=== PATIENT | male | born 1980 | race Caucasian/White ===

== ENCOUNTER → 2018-12-09 | Emergency (ER) | payer OTHER ==
[~2018-12-09] VITALS: Ht 147.3 cm; Wt 45.4 kg
[~2018-12-09] MED LIST: TENORMIN25 MG
== END | disposition designated cancer center or children's hospital (05) ==
LOC: ER 21:13
DX: R45.851 Suicidal ideations (principal); F10.20 Alcohol dependence, uncomplicated